=== PATIENT | male | born 1995 | race Two or more races ===

== ENCOUNTER 2017-05-09 12:30 | Emergency (ER) | payer OTHER ==
[2017-05-09 12:56] VITALS: BP 155/79
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
== END 2017-05-09 15:45 | disposition home or self-care (01) ==
LOC: ER 12:30
DX: S02.2XXA Fracture of nasal bones, initial encounter for closed fracture (principal); S02.32XA Fracture of orbital floor, left side, initial encounter for closed fracture; S00.03XA Contusion of scalp, initial encounter; Y04.2XXA Assault by strike against or bumped into by another person, initial encounter; F17.200 Nicotine dependence, unspecified, uncomplicated
CPT/HCPCS: 70486; 99283

== ENCOUNTER 2017-05-11 21:28 | Emergency (ER) | payer OTHER ==
[2017-05-11 21:35] VITALS: BP 145/80
--- NOTE | 2017-05-11 21:56 | ER Document Report ---
HPI - HPI Patient complains to provider of: toe laceration Onset: Just prior to arrival Quality of pain: Other - sore Severity: Moderate Pain Level: 3 Context: Pt presents to the Emergency Department for laceration to the base of his right 5th toe. He reports he just noted it PTO. He denies injury. Plantar base of toe is whitish with skin split. No erythema/warmth/discharge. No active bleeding. Associated Symptoms: None Exacerbated by: Denies Relieved by: Denies Similar symptoms previously: No Recently seen / treated by doctor: No - DERM Skin Color: Normal Past Medical History - General Information source: Patient - Social History Smoking Status: Unknown if Ever Smoked Cigarette use (# per day): No Frequency of alcohol use: Occasional Drug Abuse: None Occupation: [employer] Family History: Reviewed & Not Pertinent Patient has suicidal ideation: No Patient has homicidal ideation: No - Medical History Medical History: Negative Renal/ Medical History: Denies: Hx Peritoneal Dialysis Past Surgical History: Reports: Hx Orthopedic Surgery Vertical Provider Document - CONSTITUTIONAL Agree With Documented VS: Yes Exam Limitations: No Limitations General Appearance: WD/WN, No Apparent Distress - INFECTION CONTROL TRAVEL OUTSIDE OF THE [place] IN LAST 30 DAYS: No - HEENT HEENT: Atraumatic, Normocephalic - NECK Neck: Supple - RESPIRATORY Respiratory: No Respiratory Distress O2 Sat by Pulse Oximetry: 99 - CARDIOVASCULAR Cardiovascular: Regular Rate - MUSCULOSKELETAL/EXTREMETIES Musculoskeletal/Extremeties: MAEW, FROM, Non-Tender - NEURO Level of Consciousness: Awake, Alert, Appropriate Motor/Sensory: No Motor Deficit - DERM Integumentary: Warm, Dry Adult Front & Back Diagram: 1 - SKIN SPLIT AROUND plantar BASE OF 5TH TOE RIGHT FOOT, NO ACTIVE BLEEDING, Course - Re-evaluation Re-evalutation: 05/11/17 22:11 Pt instructed to keep area clean, dry, fu with his BAS in the AM for recheck - Vital Signs Vital signs: Temp Pulse Resp BP Pulse Ox 98.4 F 73 15 145/80 H 99 05/11/17 21:32 05/11/17 21:32 05/11/17 21:32 05/11/17 21:32 05/11/17 21:32 Procedures - Laceration/Wound Repair Foot 5th digit Wound length (cm): 1 Wound's Depth, Shape: Superficial Laceration pre-procedure: Shur-Clens applied Wound Repaired With: Steri-strips Discharge - Discharge Clinical Impression: Laceration, Elevated blood pressure reading Condition: Stable Disposition: HOME, SELF-CARE Instructions: Care of Steri-Strip Closure ([facility]) Additional Instructions: *You have been treated for a laceration to your right 5th toe *Monitor the site for signs of infection such as pain, redness, swelling, warmth *Keep your foot clean, dry *Follow up with your BAS tomorrow *Return to ED for signs of infection, worsening condition, changes, needs Monitor your blood pressure. Your blood pressure was elevated today. This may be because you were anxious, in pain or because you need medication. It is important to follow up with your primary care provider for full evaluation. Forms: Elevated Blood Pressure
== END 2017-05-11 22:05 | disposition home or self-care (01) ==
LOC: ER 21:28
DX: S91.114A Laceration without foreign body of right lesser toe(s) without damage to nail, initial encounter (principal); R03.0 Elevated blood-pressure reading, without diagnosis of hypertension; X58.XXXA Exposure to other specified factors, initial encounter
CPT/HCPCS: 99282